=== PATIENT | female | born 1970 | race Caucasian/White ===

== ENCOUNTER 2016-07-08 12:14 | Emergency (ER) | payer OTHER ==
[2016-07-08] MEDS ORDERED: Aspirin Low Dose CHEW TAB* 81 MG PO ONE (12:28)
[2016-07-08] MEDS ORDERED: Ondansetron INJ* 2 MG/ML VIAL IV ONE (12:53)
[2016-07-08] MEDS ORDERED: diPHENhydraMINE IV* 50 MG/ML 1 ml VIAL (BENADRYL) IV ONE (12:53)
[2016-07-08] MEDS ORDERED: Metoclopramide IV* 5 MG/ML 2 ML VIAL IV ONE (12:53)
[2016-07-08] MEDS ORDERED: NS 0.9% 1000 ML* 1,000 ML IV ONE ×2 (12:53→14:13)
--- NOTE | 2016-07-08 12:59 | RAD ---
INDICATION: Chest pressure COMPARISON: None TECHNIQUE: An AP portable view obtained at 1245 hours is submitted. FINDINGS: Bones/Soft Tissues: There are no acute bony findings. Cardiomediastinal: The cardiomediastinal silhouette is normal. Lungs: There are no infiltrates. Pleura: There are no pleural effusions. Other: None IMPRESSION: NO ACTIVE DISEASE.
[2016-07-08 13:15] LABS: Hematocrit 43 % (35-47); Hemoglobin 14.3 g/dl (12.0-16.0); Mean Corpuscular HGB Conc 33 g/dl (31-36); Mean Corpuscular Hemoglobin 31 pg (27-31); Mean Corpuscular Volume 93 fL (80-97); Mean Platelet Volume 9 um3 (7.4-10.4); Red Blood Count 4.64 10^6/ul (4.0-5.4); Red Cell Distribution Width 13 % (10.5-15); White Blood Count 9.9 10^3/ul (3.5-10.8)
--- NOTE | 2016-07-08 13:27 | ED ---
Headache - HPI Summary HPI Summary: Patient has a history of migraine and presents today with a week of migraine and a new development of chest pressure today. She called her PCP who referred her to the ED for evaluation. She has never had chest pressure before. She denies N/V/D, sweating or lightheadedness, although she is dizzy, which occurs with her migraines. She has light sensitivity without vision changes. She denies fever, chills, recent illness or stress. Her pain does not radiate to her back, neck or arm and is not made worse with exertion or relieved by rest. Ten years ago she had her patent foramen ovale closed, but up until then she had several TIAs. She has not had an issue with this since the repair. She is not on blood thinners. - History Of Current Complaint Chief Complaint: EDChestPainROMI Stated Complaint: HEADACHE/CHEST TIGHTNESS Time Seen by Provider: 07/08/16 12:18 Hx Obtained From: Patient Onset/Duration: Gradual Onset, Started minutes ago, Still Present Initially Headache Was: Moderate Currently Pain Is: Moderate Timing: Constant Character: Dull, Typical Headache, Migraine Location of Headache: Frontal Aggravating Factor: Bright Lights Allevating Factors: Nothing Associated Signs And Symptoms: Dizziness Related History: Similar Episode/DX As: - hx migraine - Allergies/Home Medications Allergies/Adverse Reactions: Allergies Allergy/AdvReac Type Severity Reaction Status Date / Time No Known Allergies Allergy Verified 07/08/16 12:29 Home Medications: Home Medications Levothyroxine TAB* [Synthroid TAB*] 150 mcg PO 0800 07/08/16 [History Confirmed 07/08/16] PMH/Surg Hx/FS Hx/Imm Hx Endocrine/Hematology History: Reports: Hx Thyroid Disease - hypo Cardiovascular History: Reports: Hx Congenital Heart Disease - PFO repaired Neurological History: Reports: Hx Migraine, Hx Transient Ischemic Attacks (TIA) - Surgical History Surgery Procedure, Year, and Place: tonsils. appendectomy. PFO CLOSURE. LEFT ANKLE Infectious Disease History: No Infectious Disease History: Denies: Traveled Outside the [place] in Last 30 Days - Family History Known Family History: Positive: None - Social History Occupation: Employed Part-time Lives: With Family Alcohol Use: Rare Substance Use Type: Reports: None Smoking Status (MU): Never Smoked Tobacco Review of Systems Negative: Fever, Chills Positive: Photophobia. Negative: Blurred Vision, Diplopia, Drainage, Erythema Positive: Chest Pain. Negative: Palpitations Negative: Shortness Of Breath Negative: Vomiting, Diarrhea, Nausea Negative: Myalgia, Edema Positive: Headache. Negative: Weakness, Paresthesia, Numbness All Other Systems Reviewed And Are Negative: Yes Physical Exam Triage Information Reviewed: Yes Vital Signs On Initial Exam: Initial Vitals Temp Pulse Resp BP Pulse Ox 100.4 F 63 16 123/68 97 07/08/16 12:23 07/08/16 12:23 07/08/16 12:23 07/08/16 12:23 07/08/16 12:23 Vital Signs Reviewed: Yes Appearance: Positive: Well-Appearing, Pain Distress, Obese Skin: Positive: Warm, Skin Color Reflects Adequate Perfusion, Dry, Soft Head/Face: Positive: Normal Head/Face Inspection Eyes: Positive: EOMI, MELISA, Conjunctiva Clear ENT: Positive: Hearing grossly normal, Pharynx normal, TMs normal Neck: Positive: Supple, Nontender, No Lymphadenopathy Respiratory/Lung Sounds: Positive: Clear to Auscultation, Breath Sounds Present Cardiovascular: Positive: RRR. Negative: Murmur, Rub, Leg Edema Left, Leg Edema Right Abdomen Description: Positive: Nontender, Soft. Negative: CVA Tenderness (R), CVA Tenderness (L), Distended, Guarding Bowel Sounds: Positive: Present Musculoskeletal: Positive: Strength/ROM Intact. Negative: Edema Left, Edema Right Neurological: Positive: Sensory/Motor Intact, Alert, Oriented to Person Place, Time, CN Intact II-III, NV Bundle Intact Distally, Normal Gait Psychiatric: Positive: Affect/Mood Appropriate AVPU Assessment: Alert Diagnostics - Vital Signs Vital Signs Temp Pulse Resp BP Pulse Ox 07/08/16 13:00 61 15 102/56 98 07/08/16 12:28 68 96 07/08/16 12:27 123/68 07/08/16 12:23 100.4 F 63 16 123/68 97 - Laboratory Lab Results: Lab Results 07/08/16 Range/Units 13:00 WBC 9.9 (3.5-10.8) 10^3/ul RBC 4.64 (4.0-5.4) 10^6/ul Hgb 14.3 (12.0-16.0) g/dl Hct 43 (35-47) % MCV 93 (80-97) fL MCH 31 (27-31) pg MCHC 33 (31-36) g/dl RDW 13 (10.5-15) % Plt Count 288 (150-450) 10^3/ul MPV 9 (7.4-10.4) um3 Neut % (Auto) 71.5 (38-83) % Lymph % (Auto) 21.8 L (25-47) % [place] % (Auto) 5.6 (1-9) % Eos % (Auto) 0.3 (0-6) % Baso % (Auto) 0.8 (0-2) % Absolute Neuts (auto) 7.1 (1.5-7.7) 10^3/ul Absolute Lymphs (auto) 2.2 (1.0-4.8) 10^3/ul Absolute Monos (auto) 0.6 (0-0.8) 10^3/ul Absolute Eos (auto) 0 (0-0.6) 10^3/ul Absolute Basos (auto) 0.1 (0-0.2) 10^3/ul Absolute Nucleated RBC 0.01 10^3/ul Nucleated RBC % 0.1 Result Diagrams: 07/08/16 13:00 07/08/16 13:00 Lab Statement: Any lab studies that have been ordered have been reviewed, and results considered in the medical decision making process. - Radiology No standard instances Xray Interpretation: No Acute Changes Radiology Interpretation Completed By: Radiologist - EKG No standard instances Cardiac Rate: NL EKG Rhythm: Sinus Rhythm ST Segment: Normal Ectopy: None Re-Evaluation - Re-Evaluation First Eval Re-Evaluation Time: 14:10 Change: Improved - mild improvement of her headache; chest pressure has eased Second Eval Re-Evaluation Time: 15:20 Change: Improved Comment: Patient pain is gone Headache Course/Dx - Course Course Of Treatment: I discussed the patient's negative test findings with her and her . She will follow-up with her PCP in the next 48 hours and return to the emergency department if symptoms worsen. - Diagnoses Differential Diagnosis/HQI/PQRI: CVA, TIA, Migraine, Sinus Headache, Subarachnoid Hemorrhage, Tension Headache, Viral Syndrome Provider Diagnoses: Headache, Chest pressure - Physician Notifications Discussed Care Of Patient With: Dr. Ortiz, ED attending throughout the case. Discharge - Discharge Plan Condition: Stable Disposition: HOME Patient Education Materials: Migraine Headache (ED), Chest Pain (ED) Forms: *Work Release Additional Instructions: Please call your primary doctor for a follow-up appointment in the next 48 hours. Drink extra fluids and use tylenol and ibuprofen for pain. Return to the emergency department if symptoms worsen.
[2016-07-08 13:30] LABS: ALT 22 U/L (7-52); Albumin 4.5 g/dL (3.2-5.2); Alkaline Phosphatase 72 U/L (34-104); BUN/Creatinine Ratio 14.2 (8-20); Blood Urea Nitrogen 15 mg/dL (6-24); CO2 Carbon Dioxide 28 mmol/L (22-32); Calcium 9.8 mg/dL (8.6-10.3); Chloride 103 mmol/L (101-111); EGFR African American 72.1 (>60); EGFR Non-African American 56.1 (>60); Globulin 3.3 g/dL (2-4); Glucose 94 mg/dL (70-100); Sodium 138 mmol/L (133-145); Total Protein 7.8 g/dL (6.4-8.9)
--- NOTE | 2016-07-08 13:53 | RAD ---
Indication: Headache. Dizziness. History of TIA. Comparison: None. Technique: Noncontrast CT vertex of skull through foramen magnum. Report: The sulci, ventricles, and basal cisterns are normal for age. Huffman matter white matter differentiation is preserved without evidence for edema. No intra or extra axial hemorrhage, mass, or fluid collection detected. Unremarkable orbital contents. Unremarkable calvarium and skull base. Unremarkable scalp. The visualized paranasal sinuses and mastoid air spaces are clear. IMPRESSION: No acute intracranial process evident. Negative exam.
[2016-07-08 13:57] LABS: TSH (Thyroid Stimulating Horm) 1.58 mcIU/mL (0.34-5.60)
[2016-07-08] MEDS ORDERED: Ketorolac INJ* 30 MG/ML 1 ML VIAL IV ONE (14:13)
[2016-07-08 15:40] LABS: Magnesium 1.8 mg/dL (1.9-2.7)
[2016-07-08 15:42] LABS: Troponin I 0.01 ng/mL (<0.04)
[2016-07-08 16:16] VITALS: BP 100/66
== END 2016-07-08 15:30 | disposition home or self-care (01) ==
LOC: ED 12:14
DX: R51 Headache (principal); R07.9 Chest pain, unspecified; H53.149 Visual discomfort, unspecified; R42 Dizziness and giddiness
CPT/HCPCS: 36415; 70450; 71010; 80053; 83605; 83735; 84443; 84484; 85025; 93005; 99283; A9270-GY; J1200; J1885; J2405